=== PATIENT | female | born 1955 | race Hispanic/Latino ===

== ENCOUNTER 2019-07-18 08:00 | Observation (INO) | payer MEDICARE ==
[2019-07-17 14:41] LABS: BASOPHILS # (AUTO) 0.1 (0.0-0.1); BASOPHILS % 0.4 % (0.0-1.0); EOSINOPHILS # (AUTO) 0.1 (0.0-0.4); HEMATOCRIT 39.6 % (34.2-44.1); HEMOGLOBIN 13.1 g/dL (12.0-16.0); LYMPHOCYTES # (AUTO) 2.7 (1.0-3.2); LYMPHOCYTES % 21.5 % (18.0-39.1); MEAN CORPUSCULAR HEMOGLOBIN 28.5 pg (28-32); MEAN CORPUSCULAR HGB CONC 33.1 g/dL (31-35); MEAN CORPUSCULAR VOLUME 86.1 fL (81-99); MONOCYTES # (AUTO) 0.7 (0.2-0.8); MONOCYTES % 5.7 % (4.4-11.3); NEUTROPHILS # (AUTO) 8.8 (2.1-6.9); PLATELET COUNT 365 x10e3/uL (140-360); RED CELL DISTRIBUTION WIDTH 13.3 % (11.7-14.4)
[2019-07-17 14:56] LABS: ANION GAP 13.8 mmol/L (8-16); BLOOD UREA NITROGEN 8 mg/dL (7-26); BUN/CREATININE RATIO 12 (6-25); CALCIUM 9.9 mg/dL (8.4-10.2); CARBON DIOXIDE 25 mmol/L (22-29); CHLORIDE 104 mmol/L (98-107); CREATININE, SERUM 0.66 mg/dL (0.57-1.11); EST GLOMERULAR FILTRATION RATE > 60 ML/MIN (60-); GLUCOSE 113 mg/dL (74-118); POTASSIUM 3.8 mmol/L (3.5-5.1); SODIUM 139 mmol/L (136-145)
--- NOTE | 2019-07-17 15:24 | Diagnostic Imaging Report ---
EXAMINATION: PA and lateral views of the chest. COMPARISON: None CLINICAL HISTORY: Preoperative examination for breast surgery DISCUSSION: Lines/tubes: Left subclavian approach implantable cardiac device body projects over the left midlung. Leads terminate over the right atrium, right ventricle, and coronary sinus. Lungs: The lungs are well inflated and clear. There is no evidence of pneumonia or pulmonary edema. Pleura: There is no pleural effusion or pneumothorax. Heart and mediastinum: The cardiomediastinal silhouette is normal. Bones and soft tissues: No acute bony abnormalities. IMPRESSION: No acute cardiopulmonary abnormalities. Signed by: Dr. Eusebio Ocampo M.D. on 07/17/2019 3:20 PM
[2019-07-17 20:12] LABS: BLAST CELLS % MANUAL 4; EOSINOPHILS % (MANUAL) 1 % (0-7); LYMPHOCYTES % (MANUAL) 12 % (19-48); MONOCYTES % (MANUAL) 4 % (3.4-9.0); NEUTROPHILS % (MANUAL) 75 % (40-74); PLATELET ESTIMATE ADEQUATE; PLATELET MORPHOLOGY COMMENT NORMAL; RBC MORPHOLOGY COMMENT NORMAL
[~2019-07-18] VITALS: Ht 162.6 cm; Wt 78.0 kg
[~2019-07-18 08:00] MED LIST: ASPIR 8181 MG PO; ENTRESTO 24 MG1 EACH PO; GLIPIZIDE5 MG PO; HYDRALAZINE HCL50 MG PO; METFORMIN HCL850 MG PO; METOPROLOL SUCC50 MG PO
--- OUTSIDE RECORDS SUMMARY | 2019-07-18 08:03 | XMS REPORT ---
Author [facility] Address Unknown Phone Unavailable Care Team Providers Care Spindle Tester Name Role Phone Cindi CHRISTIE Unavailable Unavailable Ruth ROSS Unavailable Unavailable Payers Payer Name Policy Type Policy Number Effective Date Expiration Date Problems This patient has no known problems. Allergies, Adverse Reactions, Alerts Allergy Name Allergy Type Status Severity Reaction(s) Onset Date Inactive Date Treating Clinician Comments iodine DA Active SV 2017-10-31 00:00:00 Fish Containing Products DA Active SV 2017-06-29 00:00:00 shrimp DA Active SV 2017-06-29 00:00:00 Medications This patient has no known medications. Results Test Description Test Time Test Comments Text Results Atomic Results Result Comments CHEST 2 VIEWS 2019-07-17 15:18:00 [place] [address] Patient Name: JOSÉ ANTONIO PLASENCIA MR #: [id number] : 1955 Age/Sex: 63/F Req #: [id number] Adm Physician: Ordered by: JAZMÍN CHRISTIE MD Report #: [id number] Location: OR Room/Bed: Procedure: [id number] DX/CHEST 2 VIEWS Exam Date: 07/17/19 Exam Time: 1420 REPORT STATUS: Signed EXAMINATION: PA and lateral views of the chest. CO MPARISON: None CLINICAL HISTORY: Preoperative examination for breast surgery DISCUSSION: Lines/tubes: Left subclavian approach implantable cardiac device body projects over the left midlung. Leads terminate over the right atrium, right ventricle, and coronary sinus. Lungs: The lungs are well inflated and clear. There is no evidence of pneumonia or pulmonary edema. Pleura: There is no pleural effusion or pneumothorax. Heart and mediastinum: The cardiomediastinal silhouette is normal. Bones and soft tissues: No acute bony abnormalities. IMPRES SUMIT: No acute cardiopulmonary abnormalities. Signed by: Dr. Chay Lopez M.D. on 07/17/2019 3:20 PM Dictated By: CHAY LOPEZ MD 1520 Transcribed By: REJI on 07/17/19 1520 COPY TO: JAZMÍN CHRISTIE MD URINALYSIS COMPLETE 2018-12-11 11:59:00 UA COLOR (test code=COLU) LIGHT YELLOW YELLOW UA APPEARANCE (test code=APPU) Cloudy CLEAR UA GLUCOSE DIPSTICK (test code=DGLUU) NEGATIVE mg/dL NEGATIVE UA BILIRUBIN DIPSTICK (test code=BILU) NEGATIVE mg/dL NEGATIVE UA KETONE DIPSTICK (test code=KETU) NEGATIVE mg/dL NEGATIVE UA SPECIFIC GRAVITY (test code=SGU) 1.003 1.001-1.035 UA BLOOD DIPSTICK (test code=ROBERT) 2+ (Moderate) mg/dL NEGATIVE UA PH DIPSTICK (test code=REMIGIO) 9.0 5.0-8.0 UA PROTEIN DIPSTICK (test code=PROU) NEGATIVE mg/dL NEGATIVE UA UROBILINIOGEN DIPSTICK (test code=URO) NEGATIVE mg/dL NEGATIVE UA NITRITE DIPSTICK (test code=CHRISTINE) NEGATIVE NEGATIVE UA LEUKOCYTE ESTERASE W REFLEX (test code=LEUUR) 3+ Gelacio/uL NEGATIVE UA WBC (test code=WBCU) >50 per HPF 0-5 UA RBC (test code=RBCU) >20 #/HPF 0-5 UA WBC CLUMPS (test code=WBCUCL) 7-10 /HPF NONE UA EPITHELIAL CELLS (test code=EPIU) MOD per HPF FEW UA BACTERIA (test code=BACU) FEW #/HPF NONE Urine Source? Clean CatchURINALYSIS [id number] 11:57:00* Test Item Value Reference Range Comments UA COLOR (test code=COLU) LIGHT YELLOW YELLOW UA APPEARANCE (test code=APPU) Cloudy CLEAR UA GLUCOSE DIPSTICK (test code=DGLUU) NEGATIVE mg/dL NEGATIVE UA BILIRUBIN DIPSTICK (test code=BILU) NEGATIVE mg/dL NEGATIVE UA KETONE DIPSTICK (test code=KETU) NEGATIVE mg/dL NEGATIVE UA SPECIFIC GRAVITY (test code=SGU) 1.003 1.001-1.035 UA BLOOD DIPSTICK (test code=ROBERT) 2+ (Moderate) mg/dL NEGATIVE UA PH DIPSTICK (test code=REMIGIO) 9.0 5.0-8.0 UA PROTEIN DIPSTICK (test code=PROU) NEGATIVE mg/dL NEGATIVE UA UROBILINIOGEN DIPSTICK (test code=URO) NEGATIVE mg/dL NEGATIVE UA NITRITE DIPSTICK (test code=CHRISTINE) NEGATIVE NEGATIVE UA LEUKOCYTE ESTERASE W REFLEX (test code=LEUUR) 3+ Gelacio/uL NEGATIVE UA WBC (test code=WBCU) per HPF 0-5 UA RBC (test code=RBCU) per HPF 0-5 UA EPITHELIAL CELLS (test code=EPIU) per HPF Few UA BACTERIA (test code=BACU) per HPF NONE Urine Source? Clean CatchBASIC METABOLIC [id number] 11:21:00* Test Item Value Reference Range Comments SODIUM (test code=NA) 141 mmol/L 136-145 POTASSIUM (test code=K) 3.8 mmol/L 3.5-5.1 CHLORIDE (test code=CL) 108.0 mmol/L 98-107 CARBON DIOXIDE (test code=CO2) 28.0 mmol/L 21-32 ANION GAP (test code=GAP) 8.8 10-20 GLUCOSE (test code=GLU) 164 mg/dL 74-106 BLOOD UREA NITROGEN (test code=BUN) 9 mg/dL 7-18 GLOMERULAR FILTRATION RATE (test code=GFR) > 60 mL/min >=60 Estimated GFR by using Modified MDRD formula.Chronic kidney disease is defined as either kidney damageor GFR <60 mL/min/1.73 m2 for >3 months. CREATININE (test code=CREAT) 0.60 mg/dL 0.55-1.02 Note change in reference range due to change in reagent. BUN/CREATININE RATIO (test code=BUN/CREA) 15.0 10-20 CALCIUM (test code=CA) 8.9 mg/dL 8.5-10.1 HEPATIC FUNCTION [id number] 11:21:00* Test Item Value Reference Range Comments TOTAL PROTEIN (test code=PROT) 8.0 gram/dL 6.4-8.2 ALBUMIN (test code=ALB) 3.6 g/dL 3.4-5.0 GLOBULIN (test code=GLOB) 4.4 gram/dL 2.7-4.2 ALBUMIN/GLOBULIN RATIO (test code=A/G) 0.8 0.75-1.50 BILIRUBIN TOTAL (test code=BILT) 1.10 mg/dL 0.0-1.0 BILIRUBIN DIRECT (test code=BILD) 0.18 mg/dL 0.0-0.20 SGOT/AST (test code=AST) 20 IUnit/L 15-37 SGPT/ALT (test code=ALT) 38 IUnit/L 12-78 ALKALINE PHOSPHATASE TOTAL (test code=ALKP) 109 IUnit/L 45-117 Note change in reference range due to change in reagent. [id number] 11:21:00* Test Item Value Reference Range Comments LIPASE (test code=LIP) 120 U/L 73.0-393.0 BASIC METABOLIC [id number] 11:10:00* Test Item Value Reference Range Comments SODIUM (test code=NA) 141 mmol/L 136-145 POTASSIUM (test code=K) 3.8 mmol/L 3.5-5.1 CHLORIDE (test code=CL) 108.0 mmol/L 98-107 CARBON DIOXIDE (test code=CO2) mmol/L 21-32 ANION GAP (test code=GAP) 10-20 GLUCOSE (test code=GLU) mg/dL 74-106 BLOOD UREA NITROGEN (test code=BUN) mg/dL 7-18 GLOMERULAR FILTRATION RATE (test code=GFR) mL/min >=60 CREATININE (test code=CREAT) mg/dL 0.55-1.02 BUN/CREATININE RATIO (test code=BUN/CREA) 10-20 CALCIUM (test code=CA) mg/dL 8.5-10.1 HEPATIC FUNCTION [id number] 11:10:00* Test Item Value Reference Range Comments TOTAL PROTEIN (test code=PROT) gram/dL 6.4-8.2 ALBUMIN (test code=ALB) g/dL 3.4-5.0 GLOBULIN (test code=GLOB) gram/dL 2.7-4.2 ALBUMIN/GLOBULIN RATIO (test code=A/G) 0.75-1.50 BILIRUBIN TOTAL (test code=BILT) mg/dL 0.0-1.0 BILIRUBIN DIRECT (test code=BILD) mg/dL 0.0-0.20 SGOT/AST (test code=AST) IUnit/L 15-37 SGPT/ALT (test code=ALT) IUnit/L 12-78 ALKALINE PHOSPHATASE TOTAL (test code=ALKP) IUnit/L 45-117 [id number] 11:10:00* Test Item Value Reference Range Comments LIPASE (test code=LIP) U/L 73.0-393.0 CBC W/O [id number] 11:00:00* Test Item Value Reference Range Comments WHITE BLOOD CELL (test code=WBC) 9.6 K/mm3 4.5-12.5 RED BLOOD CELL (test code=RBC) 4.86 mill/mm3 3.7-5.2 HEMOGLOBIN (test code=HGB) 13.3 gram/dL 11.5-15.5 HEMATOCRIT (test code=HCT) 43.1 % 36.0-46.0 MEAN CELL VOLUME (test code=MCV) 88.7 fL 80-98 MEAN CELL HGB (test code=MCH) 27.4 picogram 27.0-33.0 MEAN CELL HGB CONCETRATION (test code=MCHC) 30.9 gram/dL 33.0-36.0 RED CELL DISTRIBUTION WIDTH (test code=RDW) 13.2 % 11.6-16.2 PLATELET COUNT (test code=PLT) 376 K/mm3 150-450 MEAN PLATELET VOLUME (test code=MPV) 8.5 fL 6.7-11.0 CBC W/O [id number] 10:55:00* Test Item Value Reference Range Comments WHITE BLOOD CELL (test code=WBC) K/mm3 4.5-12.5 RED BLOOD CELL (test code=RBC) mill/mm3 3.7-5.2 HEMOGLOBIN (test code=HGB) 13.3 gram/dL 11.5-15.5 HEMATOCRIT (test code=HCT) 43.1 % 36.0-46.0 MEAN CELL VOLUME (test code=MCV) fL 80-98 MEAN CELL HGB (test code=MCH) picogram 27.0-33.0 MEAN CELL HGB CONCETRATION (test code=MCHC) gram/dL 33.0-36.0 RED CELL DISTRIBUTION WIDTH (test code=RDW) % 11.6-16.2 PLATELET COUNT (test code=PLT) K/mm3 150-450 MEAN PLATELET VOLUME (test code=MPV) fL 6.7-11.0 MAMMOGRAPHY DIGITAL SCR BILAT [place] [address] Patient Name: JOSÉ ANTONIO PLASENCIA MR #: [id number] : 1955 Age/Sex: 61/F Req #: [id number] Adm Physician: Ordered by: JACKIE ROSS MD Report #: [id number] Location: MAMMO Room/Bed: Procedure: MG/MAMMOGRAPHY DIGITAL SCR BILAT Exam Date: 05/03/17 Exam Time: 1403 REPO RT STATUS: Signed #[id number] - [id number] #BILATERAL FIRST EVER DIGITA L SCREENING MAMMOGRAM WITH CAD: 05/03/2017 CLINICAL: Routine screening. Baselin e exam. No prior exams were available for comparison. Current study cont ains 4 films. There are scattered fibroglandular elements in both breasts. Current study was also evaluated with a Computer Aided Detection (CAD) system. There are benign calcifications in both breasts. No significant masses, calcifications, or other findings are seen in either breast. IMPRESSION: BENIGN There is no mammographic evidence of malignancy. A 1 year screening mammogram is recommended. The patient will be notified by letter of the resul ts. Tulio denney/matt:05/10/2017 08:24:02 Fire Management Specialist: Yessy VELASQUEZ)(Ruth), [facility] letter sent: Normal Exam Mammogram BI-RADS: 2 Benign Dictated B y: TULIO CANELA DO 3 Transcribed By: MATT on 05/10/17823 COPY TO: JACKIE ROSS MD
[2019-07-18] MEDS ORDERED: CLONAZEPAM0.5 MG PO (09:14)
[2019-07-18] MEDS ORDERED: BUPIVACAINE 0.25%/EPI 30ML SDV INJ ONE (10:13)
[2019-07-18] MEDS ORDERED: BUPIVACAINE 0.25% 30ML SDV INJ ONE (10:13)
[2019-07-18] MEDS ORDERED: LIDOCAINE HCL 2% LOCAL INJ 5 ML SDV VIAL INJ ONE (14:07)
[2019-07-18] MEDS ORDERED: ONDANSETRON HCL INJ 2MG/ML 2ML 2 MG/ML VIAL ONE (14:07)
[2019-07-18] MEDS ORDERED: PROPOFOL IV EMULSION 10 MG/ML 20 ML VIAL ONE (14:07)
[2019-07-18] MEDS ORDERED: ACETAMINOPHEN 1000 MG/100 ML IV ONE (14:07)
[2019-07-18] MEDS ORDERED: SEVOFLURANE INHAL SOLN 250 ML PEN BTL ONE (14:07)
[2019-07-18] MEDS ORDERED: PHENYLEPHRINE HCL 1% 10 MG/ML VIAL ONE (14:07)
[2019-07-18] MEDS ORDERED: DEXAMETHASONE SOD PHOS INJ 4 MG/ML VIAL ONE (14:07)
[2019-07-18 14:20] VITALS: BP 126/75
[2019-07-18] MEDS ORDERED: MORPHINE SULFATE INJ 10 MG/ML ONE (14:20)
[2019-07-18] MEDS ORDERED: FENTANYL CITRATE/PF 100MCG/2 ML INJ ONE (14:20)
[2019-07-18] MEDS ORDERED: KETAMINE HCL INJ 50 MG/ML 10 ML VIAL ONE (14:20)
[2019-07-18 14:26] VITALS: BP 126/75
[2019-07-18] MEDS ORDERED: HYDROCODONE/APAP 7.5MG-325MG 1 EA TAB PO PRN (15:00)
[2019-07-18] MEDS ORDERED: HYDROMORPHONE 1MG/1ML INJ IV PRN (15:00)
[2019-07-18 15:58] VITALS: BP 137/74
[2019-07-18] MEDS: METFORMIN HCL 850 MG TAB PO SCH (16:22)
[2019-07-18] MEDS: HYDRALAZINE HCL 25 MG TAB PO SCH (16:22)
[2019-07-18] MEDS ORDERED: NON-FORMULARY MEDICATION (Hydralazine Hcl 50 MG) PO SCH (17:00)
[2019-07-18] MEDS: SODIUM CHLORIDE 0.9% 1000ML 1,000 ML IV SCH (17:20)
--- NOTE | 2019-07-18 18:34 | Operative Report ---
DATE OF PROCEDURE: 07/18/2019 SURGEON: Maciel Almonte MD PREOPERATIVE DIAGNOSIS: Ductal carcinoma in situ of the right breast. POSTOPERATIVE DIAGNOSIS: Ductal carcinoma in situ of the right breast. OPERATION PERFORMED: Right total mastectomy. ANESTHESIA: General. COMPLICATIONS: None. ESTIMATED BLOOD LOSS: About 25 mL. DESCRIPTION OF PROCEDURE: With the patient lying in bed in the supine position under good general anesthesia, the right chest and axilla were prepped with Betadine solution and draped in the usual manner. An elliptical incision was made to include the nipple areolar complex. Flaps were then developed in all directions with the borders being superiorly the clavicle, medially the sternum, inferiorly the rectus fascia, and laterally the latissimus. The breast tissue was then taken off the pectoralis fascia all the way from medial to lateral. The lateral border of the pectoralis major was then and the breast was totally and completely removed and sent for pathological examination after proper orientation. The whole area was then thoroughly irrigated. Perfect hemostasis was ascertained. A 10 flat Dannie-Jacobo drain was then left through a separate stab wound incision and sutured to the skin with 2-0 silk and the wound was then closed with interrupted vertical mattress sutures of 2-0 and 3-0 silk. A dressing was applied. The sponge, lap, and needle count was correct. The patient tolerated the procedure well and returned to the recovery room in stable condition. Maciel Almonte MD JLAlbert/MODL /[id number]
--- NOTE | 2019-07-18 19:14 | NUR ---
Received bedside report from day nurse. Patient resting in bed, alert and oriented, no s/s of distress or c/o pain at this time. All safety measures in place. Family at bedside. Will continue to monitor.
[2019-07-18 20:24] VITALS: BP 118/68
[2019-07-18] MEDS: CLONAZEPAM 0.5 MG TAB PO SCH (20:28)
[2019-07-18 20:57] VITALS: BP 118/68
[2019-07-19] VITALS: BP 109/63
[2019-07-19] MEDS: SODIUM CHLORIDE 0.9% 1000ML 1,000 ML IV SCH ×2 (03:26→11:00)
[2019-07-19 04:00] VITALS: BP 134/75
[2019-07-19 08:09] VITALS: BP 121/70
--- NOTE | 2019-07-19 08:18 | NUR ---
Report given to charge nurse. Patient resting in bed, no s/s of distress or c/o pain at this time. All safety measures in place. Family at bedside.
[2019-07-19] MEDS ORDERED: NON-FORMULARY MEDICATION (Sacubitril/Valsartan (Entresto 24 mg-26 mg Tablet) 1 TAB) PO SCH (09:00)
[2019-07-19] MEDS ORDERED: METOPROLOL SUCCINATE 50 MG TAB XL PO SCH (09:00)
[2019-07-19] MEDS ORDERED: GLIPIZIDE 5 MG TAB PO SCH (09:00)
[2019-07-19] MEDS ORDERED: VALSARTAN/SACUBITRIL 24MG/26MG 1 EA TAB PO SCH (09:00)
[2019-07-19] MEDS: METFORMIN HCL 850 MG TAB PO SCH (09:19)
[2019-07-19] MEDS: HYDRALAZINE HCL 25 MG TAB PO SCH (09:20)
[2019-07-19] MEDS: CLONAZEPAM 0.5 MG TAB PO SCH (09:20)
--- NOTE | 2019-07-19 09:22 | NUR ---
Initial assessment completed and the pt. has questions about cholesterol medicine. She reports that she did not know the name of it on admission and does not know it now. She was advised that I will investigate the issue further.. Addendum: 07/19/19 at 0925 by Moni Krishnamurthy RN Amended: Links added.
[2019-07-19 09:25] VITALS: BP 121/70
--- NOTE | 2019-07-19 11:50 | NUR ---
BEN EXPLAINED TO PATIENT, PATIENT SIGNED, ORIGINIAL PLACED IN CHART, COPY GIVEN TO PATIENT
[2019-07-19 13:01] VITALS: BP 119/75
--- NOTE | 2019-07-19 15:09 | NUR ---
The pt. and family members were taught how to empty and record the drainage. The iv has been discontinued. The pt. was given instructions and prescriptions and knows to follow up with the dr. in 5 days..
== END 2019-07-19 15:08 | disposition home or self-care (01) ==
LOC: OR 08:00 → PACU V 13:50 → MED/SURG 14:12
PROVIDERS: ADMIT Surgery; ATTEND Surgery
DX: D05.11 Intraductal carcinoma in situ of right breast (principal); E11.9 Type 2 diabetes mellitus without complications; I11.0 Hypertensive heart disease with heart failure; I50.9 Heart failure, unspecified; E78.5 Hyperlipidemia, unspecified; I48.0 Paroxysmal atrial fibrillation; Z95.810 Presence of automatic (implantable) cardiac defibrillator; Z01.812 Encounter for preprocedural laboratory examination; Z01.811 Encounter for preprocedural respiratory examination; I25.10 Atherosclerotic heart disease of native coronary artery without angina pectoris; Z79.84 Long term (current) use of oral hypoglycemic drugs
CPT/HCPCS: 19303; 36415 ×3; 71046; 80048; 82948 ×2; 85025; 88307; G0378 ×2; J0131; J1100; J2001; J2270; J2370; J2405; J2704; J3010; J7030 ×2